=== PATIENT | male | born 1955 | race Caucasian/White ===

== ENCOUNTER 2019-09-10 08:33 | Outpatient (CLI) | payer OTHER, SELFPAY ==
--- NOTE | 2019-09-10 | ECHO_ITS ---
Patient Info Name: Miguel Live Age: 64 years : 1955 Gender: Male Ht: 67 in Wt: 205 lbs BSA: 2.13 m2 HR: 61 bpm BP: 115 / 69 mmHg Technical Quality: Poor Exam Date: 09/10/2019 9:03 AM Exam Location: [facility] Patient Status: Outpatient Admit Date: 09/10/2019 Staff Ordering Physician: MALENA GONZALEZ M.D., MD [place] Worker: Elizabeth Wall RDCS Attending Provider: KeraMalena MD Referring Physician: CÉSAR, KERA; Exam Type: CA echo doppler color flow Study Info Indications - sob cad hx/o cabg Complete two-dimensional, color flow and Doppler transthoracic echocardiogram is performed. Reason for Poor Study: patient body habitus Summary 1. Left ventricular chamber dimension is moderately enlarged. 2. Left ventricular systolic function is severely reduced, estimated at 30-35%. 3. There is mild asymmetric septal increased left ventricular wall thickness. 4. Left ventricular septal wall motion is abnormal with septal motion related to a post-operative state. 5. Entire posterior wall is akinetic. Inferior wall and lateral wall segments are hypokinetic. Anterior wall and apex have normal contractility. 6. The left ventricular diastolic function is grade I diastolic dysfunction. 7. E/e' 11 is mildly elevated. 8. Left atrial chamber dimension is mildly enlarged. 9. There is mild aortic valve sclerosis. 10. The mitral valve has mildly calcified annulus. 11. There is mild tricuspid valve regurgitation. 12. No pulmonary hypertension, estimated pulmonary arterial systolic pressure is 35 mmHg. 13. There is trace pulmonic regurgitation. Left Ventricle Entire posterior wall is akinetic. Inferior wall and lateral wall segments are hypokinetic. Anterior wall and apex have normal contractility. E/e' 11 is mildly elevated. Left ventricular chamber dimension is moderately enlarged. Left ventricular systolic function is severely reduced, estimated at 30-35%. There is mild asymmetric septal increased left ventricular wall thickness. Left ventricular septal wall motion is abnormal with septal motion related to a post-operative state. The left ventricular diastolic function is grade I diastolic dysfunction. Right Ventricle Right ventricular chamber dimension is normal. Right ventricular systolic function is normal. Left Atria Left atrial chamber dimension is mildly enlarged. Right Atria Right atrial chamber dimension is normal. Aortic Valve The aortic valve is trileaflet. There is mild aortic valve sclerosis. There is no aortic valve stenosis. There is no aortic valve regurgitation. Pulmonic Valve There is trace pulmonic regurgitation. Mitral Valve The mitral valve has mildly calcified annulus. There is no mitral valve stenosis. There is no mitral valve regurgitation. Tricuspid Valve There is mild tricuspid valve regurgitation. No pulmonary hypertension, estimated pulmonary arterial systolic pressure is 35 mmHg. Pericardium/Pleural There is no pericardial effusion. Inferior Vena Cava Normal inferior vena cava with >50% collapse upon inspiration consistent with normal right atrial pressure, 5 mmHg. Aorta The aortic root size at the sinus of Valsalva is normal. Left Ventricular Outflow Tract Name Value Normal LVOT 2D
--- NOTE | 2019-09-10 | EST_ITS ---
Patient Info Name: Miguel Live Age: 64 years : 1955 Gender: Male Ht: 67 in Wt: 200 lbs BSA: 2.10 m2 HR: 61 bpm BP: 130 / 69 mmHg Heart Rhythm: Sinus Rhythm Technical Quality: Good Exam Date: 09/10/2019 11:01 AM Exam Location: [facility] Stress Patient Status: Outpatient Admit Date: 09/10/2019 Staff Ordering Physician: Kera, Nilton Bradley MD Attending Provider: Cristopher Bryant DO Exercise Technologist: Roberto Davis RDCS Exam Type: CA stress kody w NM Study Info A pharmacological stress test was performed. History/Risk Factors CAD s/p CABG 2002, SOB, HTN. Summary 1. 1. Negative lexiscan stress test for ischemic ST changes by ECG criteria. 2. 2. Stable hemodynamics throughout the test. 3. 3. Nuclear scan to follow and will be reported separately. Please correlate with it. 4. 4. Patient informed of the above results. Protocol: Lexiscan Stress ECG Details Stage: REST Duration (min): 0 min : 11 sec HR (bpm): 60 SBP (mmHg): --- DBP (mmHg): --- Stage: REST Duration (min): 4 min : 33 sec HR (bpm): 62 SBP (mmHg): 130 DBP (mmHg): 69 Stage: STAGE 1 Duration (min): 1 min : 0 sec HR (bpm): 82 SBP (mmHg): 129 DBP (mmHg): 64 Stage: RECOVERY Duration (min): 1 min : 0 sec HR (bpm): 77 SBP (mmHg): 129 DBP (mmHg): 64 Stage: RECOVERY Duration (min): 2 min : 0 sec HR (bpm): 72 SBP (mmHg): 129 DBP (mmHg): 64 Stage: RECOVERY Duration (min): 3 min : 0 sec HR (bpm): 71 SBP (mmHg): 142 DBP (mmHg): 70 Stage: RECOVERY Duration (min): 3 min : 1 sec HR (bpm): 71 SBP (mmHg): 142 DBP (mmHg): 70 Rest HR: 62 bpm Peak HR: 88 bpm Rest Sys BP: 130 mmHg Peak Sys BP: 142 mmHg Max Pred HR: 158 bpm % Max Pred HR: 56 % Target HR: 134 bpm Max RPP: 12,496 bpm*mmHg Termination Reason: Completed protocol Cardiac Symptoms: Shortness of breath Total Time: 1 min : 0 sec Rest Montejo BP: 69 mmHg Peak Montejo BP: 70 mmHg Total Dose: 0.4 mg Resting ECG Sinus rhythm. Stress ECG No ST changes. Arrhythmias None. Report Signatures
--- NOTE | ~2019-09-10 | NM_ITS ---
EXAMINATION: NM kody stress w perfusion DATE: 09/10/2019 12:10 INDICATION: Coronary atherosclerosis. TECHNIQUE: Rest images were obtained following intravenous administration of 8.6 mCi Tc99m tetrofosmi n (Myoview). The patient was infused intravenously with Lexiscan (regadenoson). Then, 27.2 mCi Tc99m tetrofosmin (Myoview) was administered intravenously, and stress images were obtained. Data was recon structed into short axis and horizontal and vertical long axis SPECT images. Gated SPECT images were also obtained. COMPARISON: None. FINDINGS: There is a large, severe, fixed perfusion defect involving inferior, inferolateral, and ant erolateral webb and apex of left ventricle, consistent with infarct. No reversible component to sugg est ischemia. There is global hypokinesis. Left ventricular ejection fraction measures 38%. IMPRESSION: 1. 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 2. Decreased left ventricular ejection fraction measuring 38%. Reviewed, dictated and finalized at location A. IMPRESSION: 1. Large area of severe infarct involving inferior, inferolateral, and anterola teral webb and apex of left ventricle. 2. Decreased left ventricular ejection fraction measuring 38%.
== END 2019-09-10 08:34 | disposition home or self-care (01) ==
PROVIDERS: Visit Provider Specialist
DX: I25.10 Atherosclerotic heart disease of native coronary artery without angina pectoris (principal); R06.02 Shortness of breath; I21.9 Acute myocardial infarction, unspecified; I51.7 Cardiomegaly
CPT/HCPCS: 78452; 93017; 93306; A9502; J2785